=== PATIENT | male | born 1980 | race Caucasian/White ===

== ENCOUNTER 2022-10-08 10:59 | Emergency (ER) | payer SELFPAY ==
[~2022-10-08] VITALS: Ht 162.5 cm; Wt 70.5 kg
[2022-10-08] MEDS ORDERED: TETANUS,DIPTH,PERTUSS P/F (BOOSTRIX) 0.5 ML VIAL IM ONE (11:45)
[2022-10-08] MEDS ORDERED: DOXY100T2 PO (11:51)
--- NOTE | 2022-10-08 11:53 | ED General ---
General Chief Complaint: Bite-Animal/Human/Insect Stated Complaint: TICK BITE; REDNESS/SWELLING Nursing Triage Note: Patient presents to the ED with c/o tick bite with redness. Reports he removed a tick from his left thight last night. Reports it was attached for approximately 12 hours. Area surrounding the bite is reddend and inflammed. Denies fever. Source of Information: Patient History of Present Illness Date Seen by Provider: Oct 08, 2022 Time Seen by Provider: 11:01 Initial Comments 41-year-old male presenting with complaints of multiple tick bites. He has 1 to the left lateral thigh just above his knee that has become erythematous and has been itching. There are some mild swelling to the area. He denies having any fever, chills, joint aches, body aches. [place] He reports that he had multiple ticks on his legs. He had felt that it was not on there for more than 12 hours. He had removed all of the ticks. He had removed this yesterday at home. He had looked on the Internet and felt that he needed to come be seen because the area has gotten red and was itching. He also states that he has not had an update on his tetanus vaccination for more than 5 years for sure and possibly more than 10 years. He felt that the tick was definitely a deer tick that he had removed. Timing/Duration: 1 Day Severity: Mild Associated Systoms: No Chest Pain, No Cough, No Diaphoresis, No Fever/Chills, No Headaches, No Loss of Appetite, No Malaise, No Nausea/Vomiting, No Rash, No Seizure, No Shortness of Air, No Syncope, No Weakness; Other (localized reaction of erythema and mild swelling and itching to left lateral thigh just above his knee) Allergies and Home Medications Allergies Coded Allergies: No Known Drug Allergies (Unverified , 10/08/22) Patient Home Medication List Home Medication List Reviewed: Yes Doxycycline Hyclate (Doxycycline Hyclate) 100 Mg Tablet, 200 MG PO ONCE Prescribed by: JEOVANY VELEZ on 10/08/22 8875 Review of Systems Review of Systems Constitutional: No chills, No dizziness, No fever, No malaise EENTM: no symptoms reported Respiratory: no symptoms reported Cardiovascular: no symptoms reported Gastrointestinal: no symptoms reported Genitourinary: no symptoms reported Musculoskeletal: see HPI Skin: see HPI Psychiatric/Neurological: No Symptoms Reported Past Gomtaks-Xtdzdu-Ulodhv Hx Patient Social History Tobacco Use?: No Use of E-Cig and/or Vaping dev: Yes E-Cig or Vaping type used: Nicotine Use of E-Cig and/or Vaping Rusty: Current Everyday User Substance use?: No Alcohol Use?: No Pt feels they are or have been: No Immunizations Up To Date Influenza Vaccine Up-to-Date: No; Not Current First/Initial COVID19 Vaccinat: YES Second COVID19 Vaccination Navarro: YES Past Medical History Surgery/Hospitalization HX: Denies Physical Exam Vital Signs Vital Signs - First Documented 10/08/22 11:08 Temp 36.1 Pulse 86 Resp 16 B/P (MAP) 105/73 (84) Pulse Ox 100 O2 Delivery Room Air Capillary Refill : Less Than 3 Seconds Height, Weight, BMI Height: '" Weight: lbs. oz. kg; 26.00 BMI Method: General Appearance: No Apparent Distress, WD/WN HEENT: PERRL/EOMI, Pharynx Normal Neck: Full Range of Motion, Normal Inspection, Non Tender, Supple Respiratory: Chest Non Tender, Lungs Clear, Normal Breath Sounds, No Accessory Muscle Use, No Respiratory Distress Cardiovascular: Regular Rate, Rhythm, Normal Peripheral Pulses Extremity: Normal Capillary Refill, Normal Range of Motion, Non Tender, No Pedal Edema, Inflammation (3.8 cm circular area to left lateral thigh just above his knee with erythema and mild swelling.) Neurologic/Psychiatric: Alert, Oriented x3, No Motor/Sensory Deficits, Normal Mood/Affect, heat treat technician II-XII Norm as Tested Skin: Warm/Dry, Erythema (3.7 cm circular area of mild erythema and mild swelling to left lateral thigh just above his knee) Lymphatic: No Adenopathy Progress/Results/Core Measures Suspected Sepsis SIRS Temperature: Pulse: 86 Respiratory Rate: 16 Blood Pressure 105 /73 Mean: 84 Results/Orders My Orders Orders - JEOVANY VELEZ MD Dipht,Pertuss(Acell),Tet Adult (Boostrix (10/08/22 11:45) Medications Given in ED Current Medications Medications Dose Ordered Sig/Preeti Route Start Time Stop Time Status Last Admin Dose Admin Diphtheria/ Tetanus/Acell Pertussis 0.5 ml ONCE ONCE IM 10/08/22 11:45 10/08/22 11:46 DC 10/08/22 12:00 0.5 ML Vital Signs/I&O 10/08/22 10/08/22 11:08 12:00 Temp 36.1 36.1 Pulse 86 86 Resp 16 16 B/P (MAP) 105/73 (84) 105/73 Pulse Ox 100 100 O2 Delivery Room Air Room Air Capillary Refill : Less Than 3 Seconds Blood Pressure Mean: 84 Progress Note : Progress Note Potential diagnosis of localized reaction from tick bite, tick borne illness, cellulitis. Advised patient that CBC in general does not recommend antibiotics unless tick was definitely a deer tick, had been attached for more than 36 hours, and antibiotics can be started within 72 hours. Since he is confident it was a tick bite from a deer tick and was having erythema as well as there is endemic ticks and possible exposure to Lyme disease will order a single prophylactic dose of doxycycline 200 mg p.o. x1. We will also update patient's DTaP as he feels it has been more than 5 years and possibly more than 10 years. He does work with sheet-metal and gets frequent cuts. Counseled on lab testing being done for antibodies which will take at least 7 to 14 days before they would show up. Encouraged to establish care with the [facility] and follow-up with them if he required additional lab testing. Counseled on follow-up and return precautions. He may also take symptomatic treatment with antihistamines if needed for redness and itching to his leg. Departure Impression Primary Impression: Tick bite of left lower leg Qualified Codes: S80.862A - Insect bite (nonvenomous), left lower leg, initial encounter; W57.XXXA - Bitten or stung by nonvenomous insect and other nonvenomous arthropods, initial encounter Disposition: 01 HOME, SELF-CARE Condition: Stable Departure-Patient Inst. Decision time for Depature: 11:50 Referrals: NO,LOCAL PHYSICIAN (PCP) Primary Care Physician [facility] [place]ructions: Insect Bites and Stings ED Add. Discharge Instructions: You may take 200 mg of doxycycline as a single dose to help try and prevent development of Lyme disease. It is too soon to do any blood work or blood testing to look for antibodies as those can take 7 to 14 days to develop where the test would not be able to detect them. You could have this done through the [facility] clinic if needed. Try and establish care with a local provider such as through the [facility]. In terms of redness, itching, swelling you could do an antihistamine such as Benadryl or diphenhydramine to try and help with those symptoms. You did receive a Tetanus booster today that also gives you some protection against Whooping Cough as a preventative measure. All discharge instructions reviewed with patient and/or family. Voiced understanding. Scripts Doxycycline Hyclate (Doxycycline Hyclate) 100 Mg Tablet 200 MG PO ONCE for Tick Bite for 1 Day, #2 TAB 0 Refills Prov: JEOVANY VELEZ MD 10/08/22 Images Extremities-Lower 1 - Mild, Swelling (3.7 cm circular area of mild erythema and mild swelling to left lateral thigh just above his knee) JEOVANY VELEZ MD Oct 08, 2022 11:53
[2022-10-08 12:00] VITALS: BP 105/73
== END 2022-10-08 12:00 | disposition home or self-care (01) ==
LOC: ER FS 11:01
DX: S70.362A Insect bite (nonvenomous), left thigh, initial encounter (principal); F17.290 Nicotine dependence, other tobacco product, uncomplicated; Z23 Encounter for immunization; W57.XXXA Bitten or stung by nonvenomous insect and other nonvenomous arthropods, initial encounter
CPT/HCPCS: 90715; 99284